=== PATIENT | female | born 1970 | race African-American/Black ===

== ENCOUNTER 2018-09-01 08:57 | Emergency (ER) | payer MEDICARE, OTHER ==
[~2018-09-01] VITALS: Ht 165.1 cm; Wt 88.5 kg
[2018-09-01] MEDS ORDERED: AZIT250T PO (09:22)
[2018-09-01] MEDS ORDERED: HYDR115S2 PO (09:22)
--- NOTE | 2018-09-01 09:23 | PHYS DOC ---
Adult General Chief Complaint Chief Complaint: right earache HPI HPI Patient is a 47 year old female who presents with right ear pain. Patient states she had cough and sore throat for 10 days and took [id number] medication with improvement of her condition but for the last 2 days has had right ear pain and decrease of hearing without discharge. She denies history of frequent ear infection. I Review of Systems Review of Systems Constitutional: Denies fever or chills [] Eyes: Denies change in visual acuity, redness, or eye pain [] HENT: Reports nasal congestion or sore throat and earache Respiratory: Reports cough Cardiovascular: No additional information not addressed in HPI [] GI: Denies abdominal pain, nausea, vomiting, bloody stools or diarrhea [] : Denies dysuria or hematuria [] Musculoskeletal: Denies back pain or joint pain [] Integument: Denies rash or skin lesions [] Neurologic: Denies headache, focal weakness or sensory changes [] Endocrine: Denies polyuria or polydipsia [] All other systems were reviewed and found to be within normal limits, except as documented in this note. Physical Exam Physical Exam Constitutional: Well developed, well nourished, milde distress, non-toxic appearance. [] HENT: Normocephalic, atraumatic, right tympanic membrane with erythema and tenderness without perforation, oropharynx moist, no oral exudates, nose normal. [] Eyes: PERRLA, EOMI, conjunctiva normal, no discharge. [] Neck: Normal range of motion, no tenderness, supple, no stridor. [] Cardiovascular:Heart rate regular rhythm, no murmur [] Lungs & Thorax: Bilateral breath sounds clear to auscultation []] Skin: Warm, dry, no erythema, no rash. [] Back: No tenderness, no CVA tenderness. [] Extremities: No tenderness, no cyanosis, no clubbing, ROM intact, no edema. [] Neurologic: Alert and oriented X 3, normal motor function, normal sensory function, no focal deficits noted. [] Psychologic: Affect normal, judgement normal, mood normal. [] EKG EKG [] Radiology/Procedures Radiology/Procedures [] Course & Med Decision Making Course & Med Decision Making Evaluation of patient in ER showed 47-year-old female patient with URI symptoms for several days and right earache for 2 days with tympanic membrane erythema and tenderness. Patient did not want to have pain medication in ER. Plan to discharge patient home with diagnose of otitis media. Dragon Disclaimer Dragon Disclaimer This electronic medical record was generated, in whole or in part, using a voice recognition dictation system. Departure Departure: Impression: Primary Impression: Right otitis media Additional Impression: Upper respiratory infection Disposition: HOME, SELF-CARE (at 0920) Condition: STABLE Referrals: PCP,NO (PCP) Patient Instructions: Otitis Media, Adult, Upper Respiratory Infection, Adult Additional Instructions: Drink plenty of liquids Follow-up with your primary care physician in 3-5 days Return to ER if not getting better Scripts Azithromycin (ZITHROMAX) 250 Mg Tablet 1 PKG PO UD for infection, #1 PKG Prov: HUMBERTO ALVAREZ MD 09/01/18 Hydrocodone/Chlorphen P-Stirex (Tussionex Pennkinetic Susp) 115 Ml Kala.er.12h 5 ML PO BID for cough and congestion, #60 ML Prov: HUMBERTO ALVAREZ MD 09/01/18 Problem Qualifiers HUMBERTO ALVAREZ MD Sep 01, 2018 09:23
[2018-09-01 10:33] VITALS: BP 130/82
== END 2018-09-01 09:30 | disposition home or self-care (01) ==
LOC: ER 08:57
DX: H66.91 Otitis media, unspecified, right ear (principal); J06.9 Acute upper respiratory infection, unspecified
CPT/HCPCS: 99283